=== PATIENT | female | born 1965 | race Caucasian/White ===

== ENCOUNTER → 2017-04-02 | Outpatient (CLI) | payer BC | LOC: MW.CHOBGYN 12:39 | PROVIDERS: ATTEND Nurse Practitioner Women's Health | DX: R39.9 Unspecified symptoms and signs involving the genitourinary system (principal); N39.0 Urinary tract infection, site not specified | CPT/HCPCS: 81001; 87086; 87088; 87186 ==

== ENCOUNTER → 2017-04-07 | Outpatient (CLI) | payer BC ==
[2017-04-07 14:27] LABS: CHLORIDE,CL 105 mmol/L (98-110); SODIUM,NA 139 mmol/L (136-146)
== END ==
LOC: MW.CHRC 13:34
PROVIDERS: ATTEND Family Medicine
DX: E11.9 Type 2 diabetes mellitus without complications (principal); D86.9 Sarcoidosis, unspecified
CPT/HCPCS: 36415; 80053; 80061; 82044; 83036; 84443; 85027

== ENCOUNTER 2017-05-07 07:44 | Day surgery (SDC) | payer BC ==
[~2017-05-07 07:44] MED LIST: Lactated Ringers 1,000 ML IV SCH; Sodium Chloride 0.9% 10 ML Syringe FLUSH PRN; Sodium Chloride 0.9% 2.5 ML Syringe FLUSH PRN
--- NOTE | 2017-05-07 08:49 | PCM.PREANE ---
Preanesthetic Assessment - Anesthesia/Transfusion/Family Hx Anesthesia History: Prior Anesthesia Without Reaction (awoke during EGD) Type of Anesthesia Reaction: Pseudocholinesterase Deficiency Family History of Anesthesia Reaction: No Transfusion History: No Prior Transfusion(s) - Review of Systems General: No Symptoms Pulmonary: No Symptoms Cardiovascular: No Symptoms Gastrointestinal: No symptoms Neurological: No Symptoms Other: Reports: None - Physical Assessment NPO Status Date: 05/06/17 NPO Status Time: 23:00 O2 Sat by Pulse Oximetry: 99 Respiratory Rate: 16 Vital Signs: Last Vital Signs Temp 36.5 C 05/07/17 08:07 Pulse 88 05/07/17 08:07 Resp 16 05/07/17 08:07 BP 144/81 H 05/07/17 08:07 Pulse Ox 99 05/07/17 08:07 Height: 1.68 m Weight: 94.801 kg ASA Class: 2 Mental Status: Alert & Oriented x3 Airway Class: Mallampati = 2 Dentition: Reports: Normal Dentition ROM/Head Extension: Full Lungs: Clear to auscultation, Normal respiratory effort Cardiovascular: Regular Rate, Regular Rhythm - Allergies Allergies/Adverse Reactions: Allergies Allergy/AdvReac Type Severity Reaction Status Date / Time acetaminophen [From Percocet] Allergy Rash Verified 05/05/17 08:36 latex Allergy Rash Verified 05/05/17 08:36 oxycodone [From Percocet] Allergy Rash Verified 05/05/17 08:36 - Acknowledgements Anesthesia Type Planned: MAC Pt an Appropriate Candidate for the Planned Anesthesia: Yes Alternatives and Risks of Anesthesia Discussed w Pt/Guardian: Yes Pt/Guardian Understands and Agrees with Anesthesia Plan: Yes Additional Comments: yarsani, NO blood products. AM glucose =198. took losartan this am. PreAnesthesia Questionnaire Cardiovascular History: Reports: Hypertension Gastrointestinal History: Reports: GERD, Other (See Below) Other Gastrointestinal History: difficulty swallowing Genitourinary History: Reports: UTI, Recurrent [employer] History: Reports: Musculoskeletal History: Reports: Arthritis, Fracture Other Musculoskeletal History: hx fx ankle Neurological History: Reports: Neuropathy, Peripheral Psychiatric History: Reports: Anxiety, Depression Endocrine/Metabolic History: Reports: Diabetes, Type II, Obesity/BMI 30+ Immunologic History: Reports: Other (See Below) Other Immunologic History: sarcoidosis Dermatologic History: Reports: Other (See Below) Other Dermatologic History: dermatitis to hands - Past Surgical History Head Surgeries/Procedures: Reports: None Female Surgical History: Reports: Hysterectomy, Tubal Ligation - SUBSTANCE USE Smoking Status *Q: Never Smoker Recreational Drug Use History: No - HOME MEDS Home Medications: Home Meds ALPRAZolam [Xanax] 0.25 mg PO BEDTIME PRN 05/05/17 [History] Acetaminophen [Tylenol Extra Strength] 2 tab PO ASDIRECTED PRN 05/05/17 [History ] Cholecalciferol (Vitamin D3) [Vitamin D3] 2,000 units PO DAILY 05/05/17 [History ] Cranberry 400 mg PO DAILY 05/05/17 [History] Estradiol 0.5 mg PO DAILY 05/05/17 [History] Exenatide [Byetta] 5 mcg SUBCUT BID 05/05/17 [History] Losartan Potassium 100 mg PO DAILY 05/05/17 [History] glipiZIDE [Glipizide Xl] 5 mg PO DAILY 05/05/17 [History] metFORMIN HCl [Metformin HCl] 1,000 mg PO BID 05/05/17 [History] - CURRENT (IN HOUSE) MEDS Current Meds: Current Medications Lactated Ringer's (Ringers, Lactated) 1,000 mls @ 125 mls/hr IV ASDIRECTED HERNANDEZ Last Admin: 05/07/17 08:09 Dose: 125 mls/hr Sodium Chloride (Saline Flush) 10 ml FLUSH ASDIRECTED PRN PRN Reason: Keep Vein Open Sodium Chloride (Saline Flush) 2.5 ml FLUSH ASDIRECTED PRN PRN Reason: Keep Vein Open
[2017-05-07] MEDS ORDERED: fentaNYL 100 MCG/2 ML SDV ONE (09:15)
[2017-05-07] MEDS ORDERED: Propofol 200 MG/20 ML SDV ONE ×3 (09:15→09:57)
[2017-05-07] MEDS ORDERED: Lidocaine 2% 5 ML SDV ONE (09:15)
[2017-05-07] MEDS ORDERED: Midazolam 1 MG/ML 2 ML SDV ONE (09:15)
--- NOTE | 2017-05-07 10:19 | PCM.OPNOTE ---
- General Post-Op/Procedure Note Date of Surgery/Procedure: 05/07/17 Operative Procedure(s): Diagnostic EGD and screening colonoscopy Findings: Normal colon, esophageal mucosa appeared normal but the GE junction was slow to relax suggesting a motility issue Pre Op Diagnosis: dysphagia, colonoscopy Post-Op Diagnosis: same Anesthesia Technique: MAC Primary Surgeon: Vidhya Sunshine Condition: Good
[2017-05-07] MEDS ORDERED: cefOXitin 1 GM Vial ONE (10:41)
--- NOTE | 2017-05-07 11:27 | PCM.POSTAN ---
POST ANESTHESIA ASSESSMENT - MENTAL STATUS Mental Status: alert, oriented - RESPIRATORY Respiratory Status: respiratory rate WNL, airway patent, O2 saturation stable - CARDIOVASCULAR CV Status: pulse rate WNL, blood pressure stable - GASTROINTESTINAL GI Status: no symptoms - POST OP HYDRATION Hydration Status: adequate & stable
--- NOTE | 2017-05-07 11:28 | PCM48HPAN ---
Post Anesthesia Note - EVALUATION WITHIN 48HRS OF ANESTHETIC Vital Signs in Normal Range: Yes Patient Participated in Evaluation: Yes Respiratory Function Stable: Yes Airway Patent: Yes Cardiovascular Function Stable: Yes Hydration Status Stable: Yes Pain Control Satisfactory: Yes Nausea and Vomiting Control Satisfactory: Yes Mental Status Recovered: Yes
[2017-05-07 11:50] VITALS: BP 104/69
--- NOTE | 2017-05-07 12:49 | OR ---
SURGEON: FRACISCO GALLEGO MD DATE OF PROCEDURE: 05/07/2017 PREOPERATIVE DIAGNOSIS: Screening colonoscopy, dysphagia. POSTOPERATIVE DIAGNOSIS: Screening colonoscopy, dysphagia. PROCEDURE PERFORMED: Diagnostic esophagogastroduodenoscopy and screening colonoscopy. INSTRUMENTS USED: Olympus endoscope and colonoscope. ANESTHESIA: MAC. EXTENT OF EXAM: To second portion of the duodenum, to the cecum. PREPARATION: Fair. LIMITATIONS: None. INDICATIONS FOR EXAMINATION: The patient is a 52-year-old female, who presented for a 1st time screening colonoscopy. During our interview, the patient also complained of dysphagia. Last weekend, she was at a restaurant and had an obstruction of the esophagus due to a food bolus. She feels like her dysphagia has been getting worse over time. A decision was made to proceed with a screening colonoscopy as well as a diagnostic EGD. We discussed both procedures as well as their expected perioperative course. We discussed the risks, including bleeding, infection, or perforation. The patient verbalized understanding and wished to proceed. PROCEDURE IN DETAIL: The patient was brought into the endoscopy suite and placed in a beach chair position. A time-out was completed verifying the patient's name, age, date of , allergies, and procedure to be performed. A bite block was placed in the patient's mouth and monitored anesthesia care induced. Continuous oxygen was provided via nasal cannula throughout the procedure. After adequate sedation was achieved, a well lubricated endoscope was placed in the patient's mouth and advanced under direct visualization to the second portion of the duodenum. A photograph was taken. The scope was then slowly pulled back. The duodenal mucosa all appeared normal without evidence of ulceration or inflammation. The scope was brought into the stomach and a photograph was taken to the pylorus and esophageal hiatus, which appeared normal. The stomach lining appeared grossly normal. Biopsies were taken of the antrum, body, and fundus of the stomach and sent for H. pylori testing. The scope was then brought into the esophagus. A photograph was taken at the GE junction, which appeared normal. Both on entry of the scope into the distal esophagus and retrograde examination of the distal esophagus, the muscles around the area seemed to have a difficult time relaxing. There was a prolonged period of time before I could advance my scope both forward and backward given the tight constriction of the esophageal musculature around my scope at this area. The distal esophageal mucosa appeared grossly normal, so no biopsies were taken. In the proximal esophagus, there appeared to be no motility disorder or evidence of mucosal disease. The scope was then removed from the patient and this portion of the procedure terminated. The patient was then placed in a left lateral decubitus position and a digital rectal exam was performed. This exam was within normal limits. A well lubricated colonoscope was inserted into the rectum and advanced under direct visualization to the level of the cecum. Cecum was identified by both visual and anatomic landmarks. Photographs were taken of the cecal cap. Due to looping of the scope proximally, I was unable to retroflex the scope within the cecum. The scope was fully withdrawn while examining the color, texture, anatomy, and integrity mucosa from the cecum to the anal canal. The findings were consistent with normal colonic mucosa. The scope was then brought into the rectum and retroflexed to allow visualization of the anal canal opening. This appeared normal and a photograph was taken. The scope was then straightened out and removed from the patient. The cecum to anus time was 19 minutes. The patient was transferred to the recovery room in stable condition. ENDOSCOPIC DIAGNOSES: Normal colonoscopy. A prolonged contraction of the distal esophagus, but otherwise normal appearing mucosa in the upper GI. RECOMMENDATIONS: The patient will have a barium swallow study performed and follow up with me in clinic in 2 weeks. NEHA HITCHCOCK /[id number]
== END 2017-05-07 11:15 | disposition home or self-care (01) ==
LOC: MW.SDS 07:44
PROVIDERS: ATTEND Surgery
DX: Z12.11 Encounter for screening for malignant neoplasm of colon (principal); K31.89 Other diseases of stomach and duodenum; I10 Essential (primary) hypertension; K21.9 Gastro-esophageal reflux disease without esophagitis; F41.9 Anxiety disorder, unspecified; F32.9 Major depressive disorder, single episode, unspecified; E11.9 Type 2 diabetes mellitus without complications; E66.9 Obesity, unspecified; Z88.8 Allergy status to other drugs, medicaments and biological substances; Z91.040 Latex allergy status; Z68.30 Body mass index [BMI] 30.0-30.9, adult; Z90.710 Acquired absence of both cervix and uterus; Z98.51 Tubal ligation status; Z79.899 Other long term (current) drug therapy; Z79.84 Long term (current) use of oral hypoglycemic drugs
CPT/HCPCS: 43239; 45378; 82962; J0694; J2250; J3010; J7120; 00740; 88305; 88312; J2704